=== PATIENT | female | born 1965 | race Caucasian/White ===

== ENCOUNTER → 2018-05-13 09:51 | Outpatient (CLI) | payer OTHER | END | disposition home or self-care (01) | LOC: LAB 09:51 | DX: R10.84 Generalized abdominal pain (principal) ==

== ENCOUNTER 2018-05-13 11:41 | Outpatient (CLI) | payer OTHER | END 2018-05-13 16:04 | disposition home or self-care (01) | LOC: TOM 11:41 | DX: R10.84 Generalized abdominal pain (principal) ==